=== PATIENT | female | born 1950 ===

== ENCOUNTER 2024-02-13 05:22 | Day surgery (SDC) | payer OTHER ==
[~2024-02-13 05:22] MED LIST: ALLERGY RELIE15.8 ML NASAL; FAMOTIDINE20 MG PO; FARXIGA10 MG PO; INDAPAMIDE1.25 MG PO; LEVO-T75 MCG PO; LORATADINE10 M1 PO; PLAVIX75 MG PO; PROTONIX40 MG PO; TOPROL XL50 M1 PO; ZESTRIL20 MG PO; ZOCOR40 MG PO
[2024-02-13] MEDS ORDERED: BUPIVACAINE HCL 0.5% 50ML VIAL ONE (07:00)
[2024-02-13] MEDS ORDERED: LIDOCAINE HCL 1%/EPINEPHRINE 20ML VIAL IJ ONE (07:01)
[2024-02-13] MEDS ORDERED: CEFAZOLIN SODIUM 1,000 MG VIAL ONE ×2 (07:19→07:29)
[2024-02-13] MEDS ORDERED: ONDANSETRON HCL 2 MG/ML VIAL ONE (09:02)
[2024-02-25] MEDS ORDERED: BREZTRI AEROS10.7 GM IH (12:37)
== END 2024-02-13 10:55 | disposition home or self-care (01) ==
LOC: CIR.AMB 05:22
PROVIDERS: ATTEND Colon & Rectal Surgery
DX: R15.9 Full incontinence of feces (principal); K52.9 Noninfective gastroenteritis and colitis, unspecified; K29.00 Acute gastritis without bleeding
CPT/HCPCS: 64581; 95972; C1778

== ENCOUNTER 2024-02-27 05:50 | Day surgery (SDC) | payer OTHER ==
[~2024-02-27 05:50] MED LIST changes: +BREZTRI AEROS10.7 GM IH
[2024-02-27] MEDS ORDERED: CEFAZOLIN SODIUM 1,000 MG VIAL IV ONE (09:15)
[2024-02-27] MEDS ORDERED: BUPIVACAINE HCL 30 ML VIAL IJ ONE (09:15)
[2024-02-27] MEDS ORDERED: LIDOCAINE HCL 1%/EPINEPHRINE 20ML VIAL IJ ONE (09:15)
== END 2024-02-27 11:10 | disposition home or self-care (01) ==
LOC: CIR.AMB 05:50
PROVIDERS: ATTEND Colon & Rectal Surgery
DX: R15.9 Full incontinence of feces (principal); K52.9 Noninfective gastroenteritis and colitis, unspecified; K29.00 Acute gastritis without bleeding; E10.9 Type 1 diabetes mellitus without complications; E03.9 Hypothyroidism, unspecified; N18.30 Chronic kidney disease, stage 3 unspecified; F41.9 Anxiety disorder, unspecified; M19.90 Unspecified osteoarthritis, unspecified site
CPT/HCPCS: 64590; 95972; C1767